=== PATIENT | male | born 1985 | race African-American/Black ===

== ENCOUNTER 2017-02-11 08:04 | Emergency (ER) | payer BC ==
[2017-02-11] MEDS ORDERED: SODIUM CHLORIDE 0.9% 1,000 ML IV STA ×2 (08:26)
[2017-02-11] MEDS ORDERED: FAMOTIDINE 20 MG/2 ML VIAL IV STA (08:28)
[2017-02-11] MEDS ORDERED: ONDANSETRON 4 MG/2 ML VIAL IVP STA (08:29)
[2017-02-11 08:45] LABS: CH 28.6; CHCM 33.4; HCT 36.9 % (39.0-53.0); HDW 2.63; HGB 12.6 gm/dL (13.0-17.5); MCH 29.3 pg (25.0-35.0); MCHC 34.2 g/dL (31.0-37.0); MCV 85.7 fL (80.0-100.0); Mean Platelet Volume 7.6; RDW 12.6 % (11.5-15.5); WBC (Perox) 9.42
[2017-02-11 08:56] LABS: Prothrombin Time 10.5 sec (9.0-12.0)
[2017-02-11 08:57] LABS: ALT 33 U/L (21-72); AST 24 U/L (17-59); Alkaline Phosphatase 56 U/L (38-126); Anion Gap 12 mmol/L; Blood Urea Nitrogen 14 mg/dL (9-20); Calcium 8.8 mg/dL (8.4-10.2); Carbon Dioxide 25 mmol/L (22-30); Chloride 104 mmol/L (98-107); Glucose 112 mg/dL (74-99); Magnesium 1.7 mg/dL (1.6-2.3); Non-African American GFR(MDRD) >60 (>60 ml/min/1.73 sqM); Potassium 3.6 mmol/L (3.5-5.1); Sodium 141 mmol/L (137-145); Total Bilirubin 0.2 mg/dL (0.2-1.3)
[2017-02-11 09:01] LABS: Add Differential Manual Differential
[2017-02-11 09:04] LABS: Nucleated Red Blood Cells 0 /100 WBC (0-0); Total Cells Counted 200
[2017-02-11 09:05] LABS: Manual Review Performed; RBC Morphology Normal
[2017-02-11 09:06] LABS: Partial Thromboplastin Time 20.8 sec (22.0-30.0)
[2017-02-11 09:07] LABS: Creatine Kinase 149 U/L (55-170)
[2017-02-11 09:20] LABS: Creatine Kinase MB 0.3 ng/mL (0.0-2.4); Troponin I <0.012 ng/mL (0.000-0.034)
--- NOTE | 2017-02-11 09:58 | XR ---
EXAMINATION TYPE: XR chest 1V portable DATE OF EXAM: 02/11/2017 Comparison: None Clinical History: 31-year-old male with pain Findings: The cardiomediastinal silhouette, aorta, and pulmonary vasculature are within normal limits. Lungs and pleural spaces are clear. Impression: No acute cardiopulmonary process.
--- NOTE | 2017-02-11 10:02 | XR ---
EXAMINATION TYPE: XR abdomen 1V DATE OF EXAM: 02/11/2017 CLINICAL DATA: 31 year-old male with pain, [facility] COMPARISON: None FINDINGS: Lung bases are clear. Supine imaging limited for assessment of free intraperitoneal air. No dilated bowel. Air is seen throughout the colon and some central small bowel loops. No significant stool burden. No suspicious calcifications identified IMPRESSION: No significant stool burden. No evidence of bowel obstruction or free intraperitoneal air.
--- NOTE | 2017-02-11 10:28 | ED ---
GI Bleed HPI - General Chief complaint: GI Bleed Stated complaint: Blood in stool Time Seen by Provider: 02/11/17 08:12 Source: patient, RN notes reviewed Mode of arrival: wheelchair Limitations: no limitations - History of Present Illness Initial comments: This is a 31-year-old male who is a Jehovah witness who states he had the onset of diarrhea with blood in it this morning. He came in for evaluation he does state that he had a go the bathroom while in the bathroom he passed a large amount of blood approximately 800 mL in a hat with approximately 500 mL of burgundy clots and blood on the floor. He. He did have a near syncopal episode without a syncopal episode. This is unclear he does state he had wisdom teeth removed within the last day or so he had some bleeding from that. He denies any fevers chills. He does complain some sweats at this time. He complains some epigastric discomfort. He does state he had a history of GI bleeding and passed had a colonoscopy and was nothing was found. He again reiterates she is a Jehovah witness and does not want a blood transfusion. complaint: other - Related Data Home Medications Medication Instructions Recorded Confirmed Multivitamins, Thera [Multivitamin 1 tab PO DAILY 02/11/17 02/11/17 (formulary)] Allergies Allergy/AdvReac Type Severity Reaction Status Date / Time No Known Allergies Allergy Verified 02/11/17 09:10 Review of Systems ROS Statement: Those systems with pertinent positive or pertinent negative responses have been documented in the HPI. ROS Other: All systems not noted in ROS Statement are negative. Past Medical History Past Medical History: No Reported History History of Any Multi-Drug Resistant Organisms: None Reported Past Surgical History: No Surgical Hx Reported Past Psychological History: Anxiety, Depression Smoking Status: Never smoker Past Alcohol Use History: None Reported Past Drug Use History: Marijuana General Exam - General Exam Comments Initial Comments: This is a well-developed well-nourished awake somewhat lethargic Limitations: no limitations General appearance: alert, anxious, lethargic, in distress Head exam: Present: atraumatic, normocephalic, normal inspection Eye exam: Present: normal appearance, PERRL, EOMI. Absent: scleral icterus, conjunctival injection, periorbital swelling ENT exam: Present: mucous membranes moist, other (No active bleeding) Neck exam: Present: normal inspection. Absent: tenderness, meningismus, lymphadenopathy Respiratory exam: Present: normal lung sounds bilaterally. Absent: respiratory distress, wheezes, rales, rhonchi, stridor Cardiovascular Exam: Present: normal rhythm, tachycardia, normal heart sounds. Absent: systolic murmur, diastolic murmur, rubs, gallop, clicks GI/Abdominal exam: Present: soft, normal bowel sounds. Absent: distended, tenderness, guarding, rebound, rigid Rectal exam: Present: normal inspection, other (Obviously positive blood) exam: Present: normal inspection Extremities exam: Present: normal inspection, full ROM, normal capillary refill. Absent: tenderness, pedal edema, joint swelling, calf tenderness Back exam: Present: normal inspection Neurological exam: Present: alert, oriented X3, CN II-XII intact Psychiatric exam: Present: normal affect, normal mood Skin exam: Present: warm, dry, intact, pallor. Absent: rash Course Vital Signs 02/11/17 02/11/17 02/11/17 08:06 08:30 08:50 Temperature 97.3 F L Pulse Rate 122 H 96 98 Respiratory 18 20 22 Rate Blood Pressure 126/78 108/62 122/78 O2 Sat by Pulse 95 100 100 Oximetry 02/11/17 02/11/17 02/11/17 09:05 09:24 09:33 Temperature 96.9 F L Pulse Rate 99 102 H 92 Respiratory 22 16 20 Rate Blood Pressure 114/71 120/76 124/78 O2 Sat by Pulse 100 100 100 Oximetry 02/11/17 02/11/17 02/11/17 10:00 10:30 11:00 Temperature Pulse Rate 92 92 104 H Respiratory 18 18 18 Rate Blood Pressure 130/89 125/78 127/82 O2 Sat by Pulse 100 96 96 Oximetry - Reevaluation(s) Reevaluation #1: 02/11/17 11:53 Reevaluation patient reveals he still has some abdominal cramping but does feel improved. His blood pressure and color has improved. Medical Decision Making - Medical Decision Making Reevaluation patient reveals improvement in blood pressure pulse rate. He initial plan was to admit patients to this facility he has requested transfer to [facility] in [place]. I did discuss this with the transfer team patient will be admission to the medical ICU at [facility] this was discussed with Dr. Low who is agreed to set the patient transfer. I did discuss this with the patient and multiple family members were present. - Lab Data Result diagrams: 02/11/17 08:26 02/11/17 08:26 Lab Results 02/11/17 02/11/17 02/11/17 Range/Units 08:26 08:26 08:26 WBC 9.0 (3.8-10.6) k/uL RBC 4.30 (4.30-5.90) m/uL Hgb 12.6 L (13.0-17.5) gm/dL Hct 36.9 L (39.0-53.0) % MCV 85.7 (80.0-100.0) fL MCH 29.3 (25.0-35.0) pg MCHC 34.2 (31.0-37.0) g/dL RDW 12.6 (11.5-15.5) % Plt Count 237 (150-450) k/uL Neutrophils % (Manual) 43 % Lymphocytes % (Manual) 46 % Monocytes % (Manual) 7 % Eosinophils % (Manual) 5 % Neutrophils # (Manual) 3.87 (1.3-7.7) k/uL Lymphocytes # (Manual) 4.14 (1.0-4.8) k/uL Monocytes # (Manual) 0.63 (0-1.0) k/uL Eosinophils # (Manual) 0.45 (0-0.7) k/uL Nucleated RBCs 0 (0-0) /100 WBC Manual Slide Review Performed RBC Morphology Normal PT 10.5 (9.0-12.0) sec INR 1.0 (<1.2) APTT 20.8 L (22.0-30.0) sec Sodium (137-145) mmol/L Potassium (3.5-5.1) mmol/L Chloride (98-107) mmol/L Carbon Dioxide (22-30) mmol/L Anion Gap mmol/L BUN (9-20) mg/dL Creatinine (0.66-1.25) mg/dL Est GFR (MDRD) Af Amer (>60 ml/min/1.73 sqM) Est GFR (MDRD) Non-Af (>60 ml/min/1.73 sqM) Glucose (74-99) mg/dL Calcium (8.4-10.2) mg/dL Magnesium (1.6-2.3) mg/dL Total Bilirubin (0.2-1.3) mg/dL AST (17-59) U/L ALT (21-72) U/L Alkaline Phosphatase (38-126) U/L Total Creatine Kinase 149 (55-170) U/L CK-MB (CK-2) 0.3 (0.0-2.4) ng/mL CK-MB (CK-2) Rel Index 0.2 Troponin I <0.012 (0.000-0.034) ng/mL Total Protein (6.3-8.2) g/dL Albumin (3.5-5.0) g/dL Lipase (23-300) U/L Blood Type Blood Type Recheck Antibody Screen Spec Expiration Date 02/11/17 02/11/17 Range/Units 08:26 08:26 WBC (3.8-10.6) k/uL RBC (4.30-5.90) m/uL Hgb (13.0-17.5) gm/dL Hct (39.0-53.0) % MCV (80.0-100.0) fL MCH (25.0-35.0) pg MCHC (31.0-37.0) g/dL RDW (11.5-15.5) % Plt Count (150-450) k/uL Neutrophils % (Manual) % Lymphocytes % (Manual) % Monocytes % (Manual) % Eosinophils % (Manual) % Neutrophils # (Manual) (1.3-7.7) k/uL Lymphocytes # (Manual) (1.0-4.8) k/uL Monocytes # (Manual) (0-1.0) k/uL Eosinophils # (Manual) (0-0.7) k/uL Nucleated RBCs (0-0) /100 WBC Manual Slide Review RBC Morphology PT (9.0-12.0) sec INR (<1.2) APTT (22.0-30.0) sec Sodium 141 (137-145) mmol/L Potassium 3.6 (3.5-5.1) mmol/L Chloride 104 (98-107) mmol/L Carbon Dioxide 25 (22-30) mmol/L Anion Gap 12 mmol/L BUN 14 (9-20) mg/dL Creatinine 1.33 H (0.66-1.25) mg/dL Est GFR (MDRD) Af Amer >60 (>60 ml/min/1.73 sqM) Est GFR (MDRD) Non-Af >60 (>60 ml/min/1.73 sqM) Glucose 112 H (74-99) mg/dL Calcium 8.8 (8.4-10.2) mg/dL Magnesium 1.7 (1.6-2.3) mg/dL Total Bilirubin 0.2 (0.2-1.3) mg/dL AST 24 (17-59) U/L ALT 33 (21-72) U/L Alkaline Phosphatase 56 (38-126) U/L Total Creatine Kinase (55-170) U/L CK-MB (CK-2) (0.0-2.4) ng/mL CK-MB (CK-2) Rel Index Troponin I (0.000-0.034) ng/mL Total Protein 6.0 L (6.3-8.2) g/dL Albumin 3.6 (3.5-5.0) g/dL Lipase 76 (23-300) U/L Blood Type O Positive Blood Type Recheck No Antibody Screen NEGATIVE Spec Expiration Date 02/14/20172325 - Radiology Data Radiology results: report reviewed, image reviewed Critical Care Time Critical Care Time: Yes Critical Care Time: 31 minutes of critical care time which includes initial history physical labs x- rays reevaluation patient responsive therapy. Discussion with the admitting physician at [facility] as well as with the new receiving physician at [facility]. Also includes documentation. Disposition Clinical Impression: Hematochezia, Lower GI bleed, Syncope Disposition: OTHER INSTITUTION NOT DEFINED Condition: Stable Referrals: Anjel York DO [Primary Care Provider] - 1-2 days - Out of Hospital Transfer - Req. Specs Out of Hospital Transfer - Requested Specifics: Other Emergency Center
[2017-02-11 11:10] VITALS: RESP 18
[2017-02-11] MEDS ORDERED: fentaNYL (PF) 50 MCG/ML 2 ML AMP IV STA (11:59)
[2017-02-11 12:01] VITALS: BP 129/78; PULSE 100; TEMP 98.2
== END 2017-02-11 12:12 | disposition other institution (70) ==
LOC: EC 08:04 → SUPCPDRO 08:04 → EC 12:12
DX: K92.1 Melena (principal); R55 Syncope and collapse; Z79.899 Other long term (current) drug therapy
CPT/HCPCS: 36415; 86900; 86901; 80053; 82550; 82553; 83690; 83735; 84484; 85025; 85610; 85730; 86850; 71010; 74000; 99291; 96374; 96375 ×2; 96361 ×4; J2405; J3010; 93005